=== PATIENT | male | born 2000 | race Caucasian/White ===

== ENCOUNTER → 2019-05-23 | Outpatient (CLI) | payer BC, OTHER, SELFPAY ==
[2019-05-23 10:44] LABS: Absolute Neutrophil Count 2.5 X10^3/uL (2.0-7.7); Basophil# 0.05 X10^3/uL; Basophil% 1.1 % (0-1); Eosinophil# 0.21 X10^3/uL; Eosinophils% 4.5 % (0-5); Hematocrit 46.2 % (40-54); Hemoglobin 15.6 g/dL (13.0-16.5); Lymphocyte % 32.1 % (19-41); Mean Corp Hgb Conc 33.8 g/dL (32-36); Mean Corpuscular Hgb 29.3 pg (27.0-32.0); Mean Corpuscular Volume 86.7 fL (80-94); Monocyte# 0.42 X10^3/uL; NRBC Flagged by Analyzer 0 % (0-5); Neutrophil # 2.49 X10^3/uL (2.7-7.7); Neutrophil % 53.1 % (47-70); Platelet Count 197 K/mm3 (150-450); RBC Distribution Width CV 12.2 % (11.6-14.6); RBC Distribution Width SD 38.4 fl (35.1-43.9); Red Blood Count 5.33 M/mm3 (4.6-6.2); White Blood Count 4.7 K/mm3 (4.4-11.0)
[2019-05-23 11:18] LABS: Thyroid Stim Hormone (TSH) 1.23 uIU/mL (0.358-3.74)
== END | disposition home or self-care (01) ==
PROVIDERS: Family Provider Family Medicine; PCP Family Medicine; Referring Provider Family Medicine; Visit Provider Family Medicine
DX: F32.9 Major depressive disorder, single episode, unspecified (principal)
CPT/HCPCS: 36415; 84443; 85025

== ENCOUNTER 2021-10-30 18:05 | Outpatient (CLI) | payer OTHER, SELFPAY | END 2021-10-30 23:59 | disposition short-term general hospital (02) | PROVIDERS: PCP Family Medicine; Visit Provider Family Medicine | DX: U07.1 COVID-19 (principal) | CPT/HCPCS: 87635; U0003; U0005 ==